=== PATIENT | male | born 1960 | race Caucasian/White ===

== ENCOUNTER 2018-08-21 21:22 | Inpatient (IN) | payer OTHER ==
[~2018-08-21] VITALS: Ht 170.2 cm; Wt 84.1 kg
[2018-08-21 22:03] LABS: BASOPHIL % 0.4 % (0-2); PLATELET COUNT 382 x10^3mcL (130-400); RED CELL DISTRIBUTION WIDTH 13.6 % (11.5-14.5)
[2018-08-21 22:10] LABS: CALCIUM 8.6 mg/dL (8.5-10.1); CARBON DIOXIDE 30.8 mmol/L (21-32); CHLORIDE SERUM 109 mmol/L (98-107); GFR1 > 60 mL/min; GLUCOSE SERUM 110 mg/dL (74-106); POTASSIUM SERUM 4.3 mmol/L (3.5-5.1); SODIUM SERUM 146 mmol/L (136-145)
[2018-08-21 22:28] LABS: ALKALINE PHOSPHATASE 108 U/L (46-116); ALT/SGPT 48 U/L (16-63); AST/SGOT 25 U/L (15-37); BILIRUBIN TOTAL 0.29 mg/dL (0.20-1.00); TOTAL PROTEIN, SERUM 7.3 g/dL (6.4-8.2)
[2018-08-21 22:30] LABS: ALBUMIN 3.1 g/dL (3.4-5.0)
[2018-08-22] VITALS (8 sets, daily range): BP systolic 118–154; BP diastolic 70–89
[2018-08-22 02:51] LABS: CHOLESTEROL/HDL RATIO 4.5; MAGNESIUM 1.9 mg/dL (1.8-2.4); PHOSPHOROUS 2.8 mg/dL (2.5-4.9)
[2018-08-22 02:56] LABS: T3 TOTAL 1.27 ng/mL
[2018-08-22 03:03] LABS: FREE T4 1.13 ng/dL (0.76-1.46); FREE THYROXINE INDEX 3.4 ug/dL (1.4-4.5); T4(THYROXINE) 9.7 ug/dL (4.7-13.3)
[2018-08-22 06:37] LABS: CALCIUM 8.1 mg/dL (8.5-10.1); CARBON DIOXIDE 28.6 mmol/L (21-32); CHLORIDE SERUM 105 mmol/L (98-107); GFR1 > 60 mL/min; GLUCOSE SERUM 115 mg/dL (74-106); MAGNESIUM 1.8 mg/dL (1.8-2.4); POTASSIUM SERUM 3.5 mmol/L (3.5-5.1); SODIUM SERUM 141 mmol/L (136-145)
[2018-08-22 07:38] LABS: BASOPHIL % 0.8 % (0-2); PLATELET COUNT 396 x10^3mcL (130-400); RED CELL DISTRIBUTION WIDTH 13.5 % (11.5-14.5)
[2018-08-22] MEDS ORDERED: LIPITOR40 MG PO (11:30)
[2018-08-22] MEDS ORDERED: ZESTRIL20 MG PO (11:31)
[2018-08-22] MEDS ORDERED: METFORMIN HCL500 MG PO (11:31)
[2018-08-22] MEDS ORDERED: COREG3.125 MG PO (11:31)
[2018-08-22] MEDS ORDERED: FLUOXETINE40 MG PO (11:32)
[2018-08-22 15:37] LABS: microscopic required? NO
[2018-08-22 15:43] LABS: UA SPECIFIC GRAVITY 1.015 (1.005-1.035); urine erythrocyte NEGATIVE (NEGATIVE)
[2018-08-22 16:11] LABS: AMPHETAMINE QUAL UR NONE DETECTED (See below)
[2018-08-23 06:18] VITALS: BP 105/61
[2018-08-23 06:39] LABS: CALCIUM 8.5 mg/dL (8.5-10.1); CARBON DIOXIDE 26.9 mmol/L (21-32); CHLORIDE SERUM 107 mmol/L (98-107); GFR1 > 60 mL/min; GLUCOSE SERUM 107 mg/dL (74-106); POTASSIUM SERUM 3.7 mmol/L (3.5-5.1); SODIUM SERUM 144 mmol/L (136-145)
[2018-08-23 06:49] LABS: BASOPHIL % 0.6 % (0-2); PLATELET COUNT 394 x10^3mcL (130-400); RED CELL DISTRIBUTION WIDTH 13.8 % (11.5-14.5)
[2018-08-23 09:51] VITALS: BP 134/73
[2018-08-23 13:58] VITALS: BP 128/78
[2018-08-23 17:35] VITALS: BP 96/54
[2018-08-23 20:56] VITALS: BP 136/78
[2018-08-24 05:50] VITALS: BP 115/75
[2018-08-24 05:57] LABS: BASOPHIL % 0.6 % (0-2); PLATELET COUNT 397 x10^3mcL (130-400); RED CELL DISTRIBUTION WIDTH 13.2 % (11.5-14.5)
[2018-08-24 06:20] LABS: CALCIUM 8.4 mg/dL (8.5-10.1); CARBON DIOXIDE 28.7 mmol/L (21-32); CHLORIDE SERUM 107 mmol/L (98-107); GFR1 > 60 mL/min; GLUCOSE SERUM 100 mg/dL (74-106); POTASSIUM SERUM 3.8 mmol/L (3.5-5.1); SODIUM SERUM 143 mmol/L (136-145)
[2018-08-24 08:35] VITALS: BP 144/81
[2018-08-24 11:56] VITALS: BP 116/62
[2018-08-24 16:27] VITALS: BP 122/71
[2018-08-24 21:06] VITALS: BP 148/80
[2018-08-25 05:41] VITALS: BP 117/63
[2018-08-25 05:57] LABS: BASOPHIL % 0.7 % (0-2); PLATELET COUNT 378 x10^3mcL (130-400); RED CELL DISTRIBUTION WIDTH 13.6 % (11.5-14.5)
[2018-08-25 06:08] LABS: CALCIUM 7.9 mg/dL (8.5-10.1); CARBON DIOXIDE 31.2 mmol/L (21-32); CHLORIDE SERUM 108 mmol/L (98-107); CREATININE SERUM 1.1 mg/dL (0.7-1.3); GFR1 > 60 mL/min; GLUCOSE SERUM 90 mg/dL (74-106); SODIUM SERUM 144 mmol/L (136-145)
[2018-08-25 08:16] VITALS: BP 117/75
[2018-08-25 12:00] VITALS: BP 120/70
[2018-08-25 16:26] VITALS: BP 122/69
[2018-08-25 20:52] VITALS: BP 144/83
[2018-08-26 05:57] VITALS: BP 102/61
[2018-08-26 08:13] VITALS: BP 126/74
[2018-08-26 11:26] VITALS: BP 120/63
[2018-08-26 17:54] VITALS: BP 137/82
[2018-08-26 21:14] VITALS: BP 140/77
[2018-08-27 05:49] VITALS: BP 110/61
[2018-08-27 07:23] LABS: BASOPHIL % 0.9 % (0-2); PLATELET COUNT 334 x10^3mcL (130-400); RED CELL DISTRIBUTION WIDTH 13.6 % (11.5-14.5)
[2018-08-27 07:34] LABS: CALCIUM 7.8 mg/dL (8.5-10.1); CARBON DIOXIDE 28.8 mmol/L (21-32); CHLORIDE SERUM 109 mmol/L (98-107); CREATININE SERUM 1.2 mg/dL (0.7-1.3); GFR1 > 60 mL/min; GLUCOSE SERUM 114 mg/dL (74-106); POTASSIUM SERUM 3.5 mmol/L (3.5-5.1); SODIUM SERUM 146 mmol/L (136-145)
[2018-08-27 09:00] VITALS: BP 127/70
[2018-08-27 12:10] VITALS: BP 123/66
[2018-08-27 16:45] VITALS: BP 147/90
[2018-08-27 21:00] VITALS: BP 150/81
[2018-08-27 23:30] VITALS: BP 140/80
[2018-08-28 05:56] VITALS: BP 122/71
[2018-08-28 08:15] VITALS: BP 147/82
[2018-08-28 12:10] VITALS: BP 123/68
[2018-08-28 18:10] VITALS: BP 138/83
[2018-08-28 21:42] VITALS: BP 154/85
[2018-08-29 05:55] VITALS: BP 149/69
[2018-08-29 09:51] VITALS: BP 144/78
[2018-08-29 10:01] LABS: CALCIUM 8.2 mg/dL (8.5-10.1); CARBON DIOXIDE 31.2 mmol/L (21-32); CHLORIDE SERUM 107 mmol/L (98-107); CREATININE SERUM 1.1 mg/dL (0.7-1.3); GFR1 > 60 mL/min; GLUCOSE SERUM 134 mg/dL (74-106); POTASSIUM SERUM 3.4 mmol/L (3.5-5.1); SODIUM SERUM 143 mmol/L (136-145)
[2018-08-29 12:33] VITALS: BP 128/79
[2018-08-29 16:13] VITALS: BP 146/68
[2018-08-29 18:32] VITALS: BP 146/68
== END 2018-08-29 20:30 | DRG 115 ==
LOC: EDBD 21:22 → ED 21:22 → DU 08-22
PROVIDERS: Emergency Medicine; Family Medicine; ADMIT Internal Medicine
DX: H93.13 Tinnitus, bilateral (principal); E87.0 Hyperosmolality and hypernatremia; E11.65 Type 2 diabetes mellitus with hyperglycemia; E87.8 Other disorders of electrolyte and fluid balance, not elsewhere classified; I50.9 Heart failure, unspecified; I11.0 Hypertensive heart disease with heart failure; E44.1 Mild protein-calorie malnutrition; I69.351 Hemiplegia and hemiparesis following cerebral infarction affecting right dominant side; F32.9 Major depressive disorder, single episode, unspecified; F17.210 Nicotine dependence, cigarettes, uncomplicated; Z66 Do not resuscitate; Z79.84 Long term (current) use of oral hypoglycemic drugs; F41.9 Anxiety disorder, unspecified; D72.829 Elevated white blood cell count, unspecified
CPT/HCPCS: 82962; 83880; 84439; 90658; 97116-GP; 97530-GP; G0480; J0360; J1940; J7030; J8597; Q0092

== ENCOUNTER 2020-01-04 16:54 | Emergency (ER) | payer OTHER ==
[~2020-01-04] VITALS: Ht 167.6 cm; Wt 81.6 kg
[~2020-01-04 16:54] MED LIST: COREG3.125 MG PO; FLUOXETINE40 MG PO; LIPITOR40 MG PO; METFORMIN HCL500 MG PO; ZESTRIL20 MG PO
[2020-01-04 17:14] VITALS: Ht 167.6 cm; Wt 81.6 kg
[2020-01-04 18:42] VITALS: BP 148/79
== END 2020-01-04 18:44 | disposition home or self-care (01) ==
LOC: ED 16:54
DX: F41.9 Anxiety disorder, unspecified (principal); Z76.0 Encounter for issue of repeat prescription; I10 Essential (primary) hypertension; E11.9 Type 2 diabetes mellitus without complications; F17.210 Nicotine dependence, cigarettes, uncomplicated; Z71.6 Tobacco abuse counseling; Z86.73 Personal history of transient ischemic attack (TIA), and cerebral infarction without residual deficits